=== PATIENT | male | born 1965 | race Caucasian/White ===

== ENCOUNTER 2021-02-22 18:56 | Emergency (ER) | payer MEDICARE, SELFPAY ==
[2021-02-22] VITALS (26 sets, daily range): BP systolic 122–150; BP diastolic 70–90; PULSE 59–80; RESP 11–15; TEMP 36.8; O2SAT 99–100
--- NOTE | ~2021-02-22 | CT_ITS ---
EXAMINATION: CT brain wo con EXAM DATE: 02/22/2021 19:28 INDICATION: Seizure, right arm weakness. Confusion. TECHNIQUE: Spiral CT of the head was performed without contrast. Axial, coronal and sagittal images were reviewed. The dose-length product (DLP) for this examination was 605.33 mGy-cm. The exposure w as tailored according to patient size, and iterative reconstruction (ASIR) was used as additional dos e reduction technique. Comparison is made to prior examination from There are no prior studies for co mparison.. FINDINGS: Sagittal sinus, torcula, left transverse sinus is hyperdense along with the bilateral inter nal cerebral veins, measuring about 80 Hounsfield units. Appearances consistent with acute thrombosis . There is no acute intraparenchymal hemorrhage. No evidence of intraparenchymal brain mass lesion. N o evidence of acute infarction. There is no mass effect or midline shift. The ventricles are normal in size. There are no extra-axial collections. There are no acute calvarial fractures. The orbits are unremarkable. Soft tissue is unremarkable. Mild to moderate sinus mucoperiosteal disease. IMPRESSION: Hyperdense sagittal, left transverse sinuses and internal cerebral veins consistent with acute venous thrombosis. No parenchymal density abnormality. I discussed this case with Henrry Ashley MD at 02/22/2021 19:45 CDT. Reviewed, dictated and finalized at location G. IMPRESSION: Hyperdense sagittal, left transverse sinuses and internal cerebral veins consistent with acute venous thrombosis. No parenchymal density abnormali ty. I discussed this case with Henrry Ashley MD at 02/22/2021 19:45 CDT.
--- NOTE | ~2021-02-22 | XR_ITS ---
EXAMINATION: XR chest 1V portable EXAM DATE: 02/22/2021 19:10 INDICATION: Right-sided paralysis, shaky eyes, migraine since . Stroke. TECHNIQUE: Portable AP frontal chest x-ray was obtained. There is no prior study for comparison. FINDINGS: The lungs are clear. There are no pleural effusions. Cardiomediastinal silhouette is norm al. There is no pneumothorax suspected. The bones and soft tissues are unremarkable. IMPRESSION: No acute cardiopulmonary findings. Reviewed, dictated and finalized at location G.
--- NOTE | 2021-02-22 18:59 | ECG_ITS ---
Measurements Intervals [place] Rate: 64 P: 38 ME: 163 QRS: 27 QRSD: 121 T: 3 QT: 449 QTc: 466 Interpretive Statements SINUS RHYTHM WITH SINUS ARRHYTHMIA ATRIAL PREMATURE COMPLEX INTRAVENTRICULAR CONDUCTION DELAY NONSPECIFIC ST & T-WAVE ABNORMALITY- DIFFUSE LEADS BASELINE ARTIFACT- I, II, III, AVR, AVL, AVF, V1-V6 BORDERLINE ECG Electronically Signed On 02-22-2021 21:16:22 CDT by Miguel Cook D.O.
[2021-02-22 19:03] LABS: Glucose Point of Care 116 mg/dl (65-105)
--- NOTE | 2021-02-22 19:14 | PC.NURSE ---
ERP in room at this time.
--- NOTE | 2021-02-22 19:22 | PC.NURSE ---
Patient taken to Ct.
[2021-02-22 19:37] LABS: Basophils Absolute Auto 0.1 K/mm3 (0.0-0.1); Basophils Percent Auto 0.4 % (0.2-1.2); Eosinophils Percent Auto 0.2 % (0-4.4); Hematocrit 42.8 % (42.0-52.0); Hemoglobin 14.7 g/dL (14.0-18.0); Immature Granulocyte Absolute 0.05 K/mm3 (0.00-0.031); Immature Granulocyte Percent A 0.4 % (0-0.5); Lymphocytes Absolute Auto 1.08 K/mm3 (0.9-3.2); Lymphocytes Percent Auto 8.5 % (18.3-44.2); Mean Corpuscular HGB Conc 34.3 g/dl (32-36); Mean Corpuscular Hemoglobin 29.7 pg (26-34); Mean Corpuscular Volume 86.5 fl (80-100); Mean Platelet Volume 9.4 fl (7.4-10.4); Monocytes Absolute Auto 0.7 K/mm3 (0.1-0.6); Monocytes Percent Auto 5.1 % (2.6-8.5); Neutrophils Absolute Auto 10.9 K/mm3 (1.3-6.7); Neutrophils Percent Auto 85.4 % (45.5-73.1); Platelet Count Result 144 k/mm3 (150-375); Red Blood Count 4.95 M/mm3 (4.6-6.20); Red Cell Distribution Width 13.1 % (11.5-14.5); White Blood Count 12.8 K/mm3 (4.5-10.0)
[2021-02-22 19:47] LABS: Anion Gap 10 mmol/L (8-16); Blood Urea Nitrogen 17 mg/dL (9-20); Calcium 9.6 mg/dL (8.4-10.2); Carbon Dioxide 25 mmol/L (22-30); Chloride 104 mmol/L (98-107); Estimated CRCL calculation 77 ml/min; Estimated Glomerular Filt Rate > 60; Glucose 148 mg/dL (75-110); Potassium 3.7 mmol/L (3.4-5.0); Sodium 139 mmol/L (137-145)
[2021-02-22 19:50] LABS: INR 0.9; Partial Thromboplastin Time 24.4 SECONDS (22.3-36.8); Prothrombin Time 12.5 Seconds (11.1-14.7)
[2021-02-22] MEDS: levETIRAcetam 1000MG/NACL100ML 1,000 MG/100 ML BAG 400 MG IVPB (19:50)
[2021-02-22] MEDS: SODIUM CHLORIDE 0.9% IV 1,000 ML 999 ML IV CONT (19:50)
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
[2021-02-22 19:59] LABS: Troponin I < 0.012 ng/mL (0.000-0.034)
[2021-02-22] MEDS: ENOXAPARIN 100 MG/ML SYRINGE 104 MG SUB-Q (20:08)
--- NOTE | 2021-02-22 21:16 | PC.NURSE ---
called [facility] to request transport. ETA - crew is dropping off 911 patient and then will pickup this patient. [id number] - [facility] arrived on site and pulled off this transfer for a cardiac cath standby
--- NOTE | 2021-02-22 22:31 | PC.NURSE ---
called [facility] for ETA update. 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
--- NOTE | 2021-02-22 23:05 | PC.NURSE ---
called [facility] for ETA update. ETA 60 minutes called [facility] to request transport. [facility] declined called [facility] to request transport. Declined. No transfer truck tonight. called [facility] to request transport. declined.
[2021-02-23 00:42] VITALS: BP 121/76; PULSE 74; RESP 20; TEMP 36.7; O2SAT 99
== END 2021-02-23 00:49 | disposition short-term general hospital (02) ==
LOC: ANHED 20:26
PROVIDERS: Emergency Medicine Emergency Medical Services; Emergency Provider Emergency Medicine
DX: G08 Intracranial and intraspinal phlebitis and thrombophlebitis (principal); E78.5 Hyperlipidemia, unspecified; I10 Essential (primary) hypertension
CPT/HCPCS: 36415; 70450; 71045; 80048; 82948; 84484; 85025; 85610; 85730; 93005; 96361; 96365; 96367; 96372; 99285; J0131; J1650; J1953; J7030